=== PATIENT | female | born 1990 | race Caucasian/White ===

== ENCOUNTER 2019-05-22 11:07 | Observation (INO) | payer BC ==
--- NOTE | 2019-05-22 10:57 | US ---
EXAMINATION TYPE: US abdomen complete DATE OF EXAM: 05/22/2019 COMPARISON: NONE CLINICAL HISTORY: R10.84 GENERALIZED ABD PAIN. s/p cholecystectomy 1 week ago, now complains of nause a/vomiting/RUQ pain EXAM MEASUREMENTS: Liver Length: 14.3 cm Gallbladder Wall: Surgically absent cm CBD: 0.7 cm Spleen: 11.1 cm Right Kidney: 11.7 x 4.8 x 5.0 cm Left Kidney: 11.0 x 5.3 x 5.3 cm Pancreas: Obscured by bowel gas Liver: 3.9 x 3.8 x 3.2 cm mixed echogenicity fluid collection seen within the gallbladder fossa. Dif ferential is for abscess versus biloma although given complexity findings are concerning for abscess. Gallbladder: Surgically absent Evidence for sonographic Li's sign: No CBD: wnl Spleen: wnl Right Kidney: No hydronephrosis or masses seen Left Kidney: No hydronephrosis or masses seen Upper IVC: wnl Abd Aorta: proximal portion not seen d/t large amounts of bowel gas Small amount of free fluid near GB fossa IMPRESSION: 1. Within the gallbladder fossa there is a 3.9 cm fluid collection with features concerning for absce ss versus less likely postoperative biloma. Finding was relayed directly to the ordering physician's office by the customer experience specialist at the end of examination after review with the radiologist. 2. Small amount of free fluid near the gallbladder fossa. 3. Obscuration of the pancreas and proximal abdominal aorta due to overlying bowel gas.
[2019-05-22] MEDS ORDERED: SODIUM CHLORIDE 0.9% 1,000 ML IV STA (11:17)
[2019-05-22] MEDS ORDERED: PIPERACILLIN-TAZOBACTAM 3.375 GM in SODIUM CHLORIDE 0.9% 100 ML IVPB STA (11:28)
--- NOTE | 2019-05-22 11:33 | ED ---
Recheck HPI - General Source: patient, RN notes reviewed Mode of arrival: ambulatory Limitations: no limitations <Otis Melgar - Last Filed: 05/22/19 11:40> <Karlo Mckeon - Last Filed: 05/22/19 11:59> - General Chief Complaint: Recheck/Abnormal Lab/Rx Stated Complaint: abscess Time Seen by Provider: 05/22/19 11:14 - History of Present Illness Initial Comments: 29-year-old female presents emergency Department from outpatient ultrasound for abnormal ultrasound. Patient states that she's been having worsening symptoms after cholecystectomy last Saturday. Patient states this was performed by Dr. Kingston in which she states that she had gallbladder disease with gallstones. Patient states that she cannot eat or drink anything because she gets sick. Patient's ultrasound shows fluid collection concerning for abscess or biloma. Patient reports subjective fevers chills or night sweats. Patient denies any INGESTION or other complaints. (Otis Melgar) - Related Data Allergies Allergy/AdvReac Type Severity Reaction Status Date / Time No Known Allergies Allergy Verified 05/22/19 11:12 Review of Systems ROS Other: All systems not noted in ROS Statement are negative. <Otis Melgar - Last Filed: 05/22/19 11:40> ROS Other: All systems not noted in ROS Statement are negative. <Karlo Mckeon - Last Filed: 05/22/19 11:59> ROS Statement: Those systems with pertinent positive or pertinent negative responses have been documented in the HPI. Past Medical History Past Medical History: No Reported History History of Any Multi-Drug Resistant Organisms: None Reported Past Surgical History: Cholecystectomy Past Psychological History: No Psychological Hx Reported Smoking Status: Never smoker Past Alcohol Use History: Occasional Past Drug Use History: None Reported <Otis Melgar - Last Filed: 05/22/19 11:40> General Exam Limitations: no limitations General appearance: alert, in no apparent distress Head exam: Present: atraumatic, normocephalic, normal inspection Eye exam: Present: normal appearance, PERRL, EOMI. Absent: scleral icterus, conjunctival injection, periorbital swelling ENT exam: Present: normal exam, normal oropharynx, mucous membranes moist Neck exam: Present: normal inspection, full ROM. Absent: tenderness, meningismus, lymphadenopathy Respiratory exam: Present: normal lung sounds bilaterally. Absent: respiratory distress, wheezes, rales, rhonchi, stridor Cardiovascular Exam: Present: regular rate, normal rhythm, normal heart sounds. Absent: systolic murmur, diastolic murmur, rubs, gallop, clicks GI/Abdominal exam: Present: soft, tenderness, normal bowel sounds, other (Ecchymosis over her surgical sites, healing well). Absent: distended, guarding, rebound, rigid Back exam: Absent: CVA tenderness (R), CVA tenderness (L) Neurological exam: Present: alert, oriented X3, CN II-XII intact Skin exam: Present: warm, dry, intact, normal color. Absent: rash <Otis Melgar - Last Filed: 05/22/19 11:40> Course Vital Signs 05/22/19 11:09 Temperature 98.3 F Pulse Rate 84 Respiratory 20 Rate Blood Pressure 98/67 O2 Sat by Pulse 99 Oximetry Medical Decision Making <Otis Melgar - Last Filed: 05/22/19 11:40> - Lab Data Result diagrams: 05/22/19 11:40 <Karlo Mckeon - Last Filed: 05/22/19 11:59> - Medical Decision Making Case discussed with Dr. Kingston who recommended have a HIDA scan without CCK patient will be admitted to observation patient was given a dose of antibiotics, given 1 L of fluids. Patient's blood pressure will be monitored, but is only moderate. There is a possibility of biliary leak versus infection. (Otis Melgar) Case discussed with Dr. Kingston, recommends HIDA scan, this will be ordered in the emergency department. Patient is initiated on antibiotics. I also discussed case with the interventional radiologist Dr. Nelson, recommends computed tomography scan, this will also be ordered and both studies are pending. (Karlo Mckeon) - Lab Data Lab Results 05/22/19 Range/Units 11:40 WBC 6.9 (3.8-10.6) k/uL RBC 4.67 (3.80-5.40) m/uL Hgb 14.3 (11.4-16.0) gm/dL Hct 42.2 (34.0-46.0) % MCV 90.4 (80.0-100.0) fL MCH 30.6 (25.0-35.0) pg MCHC 33.9 (31.0-37.0) g/dL RDW 12.5 (11.5-15.5) % Plt Count 282 (150-450) k/uL Neutrophils % 71 % Lymphocytes % 24 % Monocytes % 3 % Eosinophils % 2 % Basophils % 0 % Neutrophils # 4.9 (1.3-7.7) k/uL Lymphocytes # 1.6 (1.0-4.8) k/uL Monocytes # 0.2 (0-1.0) k/uL Eosinophils # 0.2 (0-0.7) k/uL Basophils # 0.0 (0-0.2) k/uL Disposition <Otis Melgar - Last Filed: 05/22/19 11:40> <Karlo Mckeon - Last Filed: 05/22/19 11:59> Clinical Impression: Status post cholecystectomy Narrative: Biliary leak versus abscess (Otis Melgar) Disposition: ADMITTED IP TO THIS HOSP Condition: Fair
[2019-05-22] MEDS ORDERED: ONDANSETRON 4 MG/2 ML VIAL IVP PRN (11:42)
[2019-05-22] MEDS ORDERED: HYDROmorphone 0.5 MG/0.5 ML SYRINGE IVP PRN (11:42)
[2019-05-22] MEDS ORDERED: NALOXONE 0.4 MG/ML 1 ML VIAL IV PRN (11:42)
[2019-05-22 11:56] LABS: Basophils % (A) 0 %; Eosinophils # (A) 0.2 k/uL (0-0.7); Eosinophils % (A) 2 %; HCT 42.2 % (34.0-46.0); HGB 14.3 gm/dL (11.4-16.0); Lymphocytes # (A) 1.6 k/uL (1.0-4.8); Lymphocytes % (A) 24 %; MCH 30.6 pg (25.0-35.0); MCHC 33.9 g/dL (31.0-37.0); MCV 90.4 fL (80.0-100.0); Mean Platelet Volume 7.5; Monocytes # (A) 0.2 k/uL (0-1.0); Monocytes % (A) 3 %; Neutrophils # (A) 4.9 k/uL (1.3-7.7); Neutrophils % (A) 71 %; Platelet Count 282 k/uL (150-450); RBC 4.67 m/uL (3.80-5.40); RDW 12.5 % (11.5-15.5); WBC 6.9 k/uL (3.8-10.6)
[2019-05-22 11:57] LABS: Appearance,Urine Clear (Clear); Bilirubin,Urine 1+ (Negative); Blood,Urine Negative (Negative); Calcium Oxalate Crystals,Urine Few /hpf; Color,Urine Yellow; Glucose,Urine (UA) Negative (Negative); Hyaline Casts,Urine 1 /lpf (0-2); Ketones,Urine 3+ (Negative); Leukocyte Esterase,Urine Negative (Negative); Mucus,Urine Many /hpf; Nitrite,Urine Negative (Negative); Protein,Urine 1+ (Negative); RBC,Urine 2 /hpf (0-5); Specific Gravity,Urine 1.032 (1.001-1.035); Squamous Epithelial Cell,Urine 2 /hpf (0-4); WBC,Urine 2 /hpf (0-5)
[2019-05-22 12:13] LABS: ALT 682 U/L (4-34); African American GFR (CKD) >90 (>60 ml/min/1.73 sqM); Albumin 4.4 g/dL (3.5-5.0); Anion Gap 14 mmol/L; Blood Urea Nitrogen 11 mg/dL (7-17); Calcium 9.6 mg/dL (8.4-10.2); Carbon Dioxide 22 mmol/L (22-30); Chloride 104 mmol/L (98-107); Glucose 85 mg/dL (74-99); Non-African American GFR(CKD) >90 (>60 ml/min/1.73 sqM); Sodium 140 mmol/L (137-145); Total Protein 7.5 g/dL (6.3-8.2)
[2019-05-22 12:15] LABS: Partial Thromboplastin Time 22.3 sec (22.0-30.0); Prothrombin Time 10.8 sec (9.0-12.0)
[2019-05-22 12:25] LABS: AST 225 U/L (14-36); Alkaline Phosphatase 478 U/L (38-126); Potassium 4.6 mmol/L (3.5-5.1)
--- NOTE | 2019-05-22 12:48 | P.GSHP ---
History of Present Illness H&P Date: 05/22/19 29-year-old female is admitted 8 days after having a laparoscopic cholecystectomy. Yesterday, the patient did call the office and complained of pain with meals. She states that she was having epigastric and right upper quadrant pain after any meal since the procedure. She denies any abdominal pain when she is not eating. She denies any nausea or vomiting. Secondary to having this pain, the patient was sent for an outpatient ultrasound. Ultrasound of the abdomen did reveal a 3.9 x 3.8 cm fluid collection in the gallbladder fossa. Secondary to this, the patient was sent to the emergency department for further workup. Currently, the patient is receiving a HIDA scan and I did evaluate her during her HIDA scan. She denies any current abdominal pain. She denies any fevers, chills, chest pain or shortness of breath. CBC was reviewed with no abnormalities. CMP was reviewed with notable transaminitis and elevated alkaline phosphatase. Total bilirubin is normal. - Review of Systems All systems: negative Past Medical History Past Medical History: No Reported History History of Any Multi-Drug Resistant Organisms: None Reported Past Surgical History: Cholecystectomy Past Psychological History: No Psychological Hx Reported Smoking Status: Never smoker Past Alcohol Use History: Occasional Past Drug Use History: None Reported Medications and Allergies Allergies Allergy/AdvReac Type Severity Reaction Status Date / Time No Known Allergies Allergy Verified 05/22/19 11:12 Surgical - Exam Osteopathic Statement: *. No significant issues noted on an osteopathic s tructural exam other than those noted in the History and Physical/Consult. Vital Signs Temp Pulse Resp BP Pulse Ox 98.3 F 84 20 98/67 99 05/22/19 11:09 05/22/19 11:09 05/22/19 11:09 05/22/19 11:09 05/22/19 11:09 - General well nourished, no distress - Eyes PERRL - ENT normal mucosa, no hearing loss - Neck trachea midline - Respiratory normal respiratory effort - Abdomen Soft, nontender, nondistended, no rebound, no guarding, incision sites are clean, dry and intact - Psychiatric oriented to time, oriented to person, oriented to place Results - Labs 05/22/19 11:40 05/22/19 11:40 Abnormal Lab Results - Last 24 Hours (Table) 05/22/19 05/22/19 Range/Units 11:40 11:40 Creatinine 0.48 L (0.52-1.04) mg/dL AST 225 H (14-36) U/L ALT 682 H (4-34) U/L Alkaline Phosphatase 478 H (38-126) U/L Urine Protein 1+ H (Negative) Urine Ketones 3+ H (Negative) Urine Bilirubin 1+ H (Negative) Calcium Oxalate Crystal Few H (None) /hpf Urine Mucus Many H (None) /hpf Diabetes panel 05/22/19 Range/Units 11:40 Sodium 140 (137-145) mmol/L Potassium 4.6 (3.5-5.1) mmol/L Chloride 104 (98-107) mmol/L Carbon Dioxide 22 (22-30) mmol/L BUN 11 (7-17) mg/dL Creatinine 0.48 L (0.52-1.04) mg/dL Glucose 85 (74-99) mg/dL Calcium 9.6 (8.4-10.2) mg/dL AST 225 H (14-36) U/L ALT 682 H (4-34) U/L Alkaline Phosphatase 478 H (38-126) U/L Total Protein 7.5 (6.3-8.2) g/dL Albumin 4.4 (3.5-5.0) g/dL Calcium panel 05/22/19 Range/Units 11:40 Calcium 9.6 (8.4-10.2) mg/dL Albumin 4.4 (3.5-5.0) g/dL Pituitary panel 05/22/19 Range/Units 11:40 Sodium 140 (137-145) mmol/L Potassium 4.6 (3.5-5.1) mmol/L Chloride 104 (98-107) mmol/L Carbon Dioxide 22 (22-30) mmol/L BUN 11 (7-17) mg/dL Creatinine 0.48 L (0.52-1.04) mg/dL Glucose 85 (74-99) mg/dL Calcium 9.6 (8.4-10.2) mg/dL Adrenal panel 05/22/19 Range/Units 11:40 Sodium 140 (137-145) mmol/L Potassium 4.6 (3.5-5.1) mmol/L Chloride 104 (98-107) mmol/L Carbon Dioxide 22 (22-30) mmol/L BUN 11 (7-17) mg/dL Creatinine 0.48 L (0.52-1.04) mg/dL Glucose 85 (74-99) mg/dL Calcium 9.6 (8.4-10.2) mg/dL Total Bilirubin 1.0 (0.2-1.3) mg/dL AST 225 H (14-36) U/L ALT 682 H (4-34) U/L Alkaline Phosphatase 478 H (38-126) U/L Total Protein 7.5 (6.3-8.2) g/dL Albumin 4.4 (3.5-5.0) g/dL Assessment and Plan Plan: 29-year-old female status post laparoscopic cholecystectomy 8 days ago, with abdominal pain and fluid collection on ultrasound - Patient is currently obtaining a HIDA scan to evaluate for any biliary leak status post cholecystectomy - Laboratory values were evaluated. There is no leukocytosis at this time. Transaminitis and elevated alkaline phosphatase are noted. - Further recommendations based on HIDA scan results. We will begin antibiotics.
--- NOTE | 2019-05-22 13:29 | NM ---
EXAMINATION TYPE: NM hepatobiliary wo EF DATE OF EXAM: 05/22/2019 COMPARISON: Abdominal ultrasound of the same date. HISTORY: Abdominal pain status post cholecystectomy. TECHNIQUE: After the intravenous administration of 4.85 mCi Tc 99m Mebrofenin hepatobiliary scintigra phy is performed. Immediate images post injection. FINDINGS: There is appropriate radiotracer uptake and washout of the liver throughout the examination . Excretion is seen to the biliary tree by 12 minutes with excretion into the small bowel by 14 minut es. Persistent uptake is seen just to the left of the common hepatic duct throughout the exam and jeanie tabular morphology. IMPRESSION: Persistent focal uptake is seen just to the left of the common hepatic duct and therefore the fluid collection seen on the recent ultrasound is favored to represent a biloma.
--- NOTE | 2019-05-22 13:58 | CT ---
EXAMINATION TYPE: CT abdomen pelvis w con DATE OF EXAM: 05/22/2019 COMPARISON: Ultrasound 05/22/2019, nuclear medicine scan 05/22/2019 INDICATION: epigastric pain DLP: 1449 mGycm, Automated exposure control for dose reduction was used. CONTRAST: 100 mL of Isovue 300. Study performed without Oral Contrast TECHNIQUE: Axial images were obtained from above the diaphragm to the pubic rami in the axial plane a t 5 mm thick sections. Reconstructed images are reviewed on the computer in the coronal plane. FINDINGS: Limited CT sections are obtained the lung bases. The lung bases are clear. Small hiatal hernia is p resent CT ABDOMEN: Free air is present within the abdomen. This can be compatible the patient's recent bharati cystectomy. Liver: There is a simple appearing cyst measuring 6 Hounsfield units and 3.5 cm in diameter at the in ferior right tip of the liver. This would not correspond with the findings on ultrasound exam. Spleen: Normal Pancreas: Normal Adrenal glands: The adrenal glands are normal. Gallbladder: There is been a recent cholecystectomy. No suspicious abnormal collections are evident. No biloma is identified. Suspicious changes to suggest an abscess are not evident. There are fluid-fi lled loops of duodenum adjacent potentially could account for the findings on the ultrasound. Kidneys: No masses are evident. No hydronephrosis is present. No cysts are present. Delayed images were obtained through the kidneys, which remain unremarkable. Aorta: Normal Inferior vena cava: Normal. CT PELVIS: There are some inflammatory changes along the right periumbilical region may be late to th e patient's recent laparoscopic cholecystectomy. Free air is within the pelvis which may be related t o the patient's prior surgery. Loops of bowel within the abdomen and pelvis are normal. Study is without oral contrast limiting bowel evaluation. Appendix: Normal as visualized. Urinary bladder: Normal. Genitourinary structures: Uterus appears normal. Adnexal regions appear within normal limits Osseous structures: No suspicious lytic or sclerotic lesions. IMPRESSIONS: 1. No suspicious collection to suggest abscess formation. 2. Free air within the abdomen and pelvis felt to most likely be related to the patient's recent surg kady. Monitoring can be performed for resolution. #3 simple appearing cyst within the inferior tip rig ht lobe liver
[2019-05-22] MEDS: SODIUM CHLORIDE 0.9% 1,000 ML IV SCH (14:14)
--- NOTE | 2019-05-22 15:37 | P.PN ---
Progress Note - Text Progress Note Date: 05/22/19 Imaging was completed with US of the abdomen, HIDA scan and CT of the Abdomen and pelvis. Case was discussed with both Dr. Copeland and Dr. Hercules of radiology. The originally presumed abscess does not appear on CT, and there does not appear to be any fluid collection on CT. HIDA scan also does not show evidence of bile leak. Therefore, there does not appear to be evidence of any infection/abscess or biloma. CT did incidentally find pneumoperitoneum. The patient is not showing any signs of peritonitis and on repeat exam is not complaining of any abdominal tenderness or pain. She denies nausea or vomiting. She has no evidence of leukocytosis or left shift or lactic acidosis. Pneumoperitoneum is most likely residual from surgery with slow absorption, but the patient will be observed over night for any clinical changes.
[2019-05-22] MEDS: PIPERACILLIN-TAZOBACTAM 3.375 GM in SODIUM CHLORIDE 0.9% 100 ML IVPB SCH (16:53)
[2019-05-22] MEDS ORDERED: KETOROLAC 30 MG/ML 1 ML VIAL IVP PRN (22:23)
[2019-05-23] MEDS: PIPERACILLIN-TAZOBACTAM 3.375 GM in SODIUM CHLORIDE 0.9% 100 ML IVPB SCH ×2 (00:15→08:07)
[2019-05-23] MEDS: SODIUM CHLORIDE 0.9% 1,000 ML IV SCH ×2 (00:17→15:54)
[2019-05-23 03:50] VITALS: RESP 16
[2019-05-23 07:14] LABS: Basophils % (A) 0 %; Eosinophils # (A) 0.1 k/uL (0-0.7); Eosinophils % (A) 2 %; HCT 41.4 % (34.0-46.0); HGB 13.2 gm/dL (11.4-16.0); Lymphocytes # (A) 1.4 k/uL (1.0-4.8); Lymphocytes % (A) 23 %; MCH 29.6 pg (25.0-35.0); MCHC 31.8 g/dL (31.0-37.0); Mean Platelet Volume 7.1; Monocytes # (A) 0.2 k/uL (0-1.0); Monocytes % (A) 3 %; Neutrophils # (A) 4.2 k/uL (1.3-7.7); Neutrophils % (A) 70 %; Platelet Count 237 k/uL (150-450); RBC 4.46 m/uL (3.80-5.40); RDW 12.6 % (11.5-15.5)
[2019-05-23 07:31] LABS: ALT 472 U/L (4-34); AST 110 U/L (14-36); African American GFR (CKD) >90 (>60 ml/min/1.73 sqM); Albumin 3.7 g/dL (3.5-5.0); Alkaline Phosphatase 421 U/L (38-126); Anion Gap 10 mmol/L; Blood Urea Nitrogen 8 mg/dL (7-17); Carbon Dioxide 25 mmol/L (22-30); Chloride 105 mmol/L (98-107); Glucose 82 mg/dL (74-99); Non-African American GFR(CKD) >90 (>60 ml/min/1.73 sqM); Sodium 140 mmol/L (137-145); Total Protein 6.5 g/dL (6.3-8.2)
[2019-05-23 07:53] VITALS: BP 101/66; PULSE 74; TEMP 98
[2019-05-23] MEDS ORDERED: ONDANSETRON 4 MG TAB PO PRN (12:51)
--- NOTE | 2019-05-23 12:59 | P.PN ---
Subjective Progress Note Date: 05/23/19 Principal diagnosis: Abdominal pain status post laparoscopic cholecystectomy The patient is continuing to have some pain. She is tolerating the clear liquids although she did have some dry heaves this morning. She is requesting that she doesn't need anything further surgically, that she be allowed to be discharged home. Objective - Vital Signs Vital signs: Vital Signs Temp 98.0 F 05/23/19 07:00 Pulse 74 05/23/19 07:00 Resp 16 05/23/19 07:00 BP 101/66 05/23/19 07:00 Pulse Ox 97 05/23/19 07:00 Intake & Output 05/22/19 05/23/19 05/23/19 18:59 06:59 18:59 Intake Total 75 450 Balance 75 450 Weight 81.647 kg Intake: Intake, IV Titration 75 450 Amount Sodium Chloride 0.9% 1, 75 450 000 ml @ 75 mls/hr IV . [id number] Rx#:[id number] Other: Voiding Method Toilet # Voids 1 - Constitutional General appearance: Present: cooperative, no acute distress - Gastrointestinal General gastrointestinal: Present: decreased bowel sounds, soft Localized gastrointestinal: surgical scar: diffuse (Some ecchymosis near the incisions. No cellulitis. No crepitus.) - Labs CBC & Chem 7: 05/23/19 06:47 05/23/19 06:47 Labs: Abnormal Lab Results - Last 24 Hours (Table) 05/23/19 Range/Units 06:47 AST 110 H (14-36) U/L ALT 472 H (4-34) U/L Alkaline Phosphatase 421 H (38-126) U/L Assessment and Plan (1) Abdominal pain Current Visit: Yes Status: Acute Code(s): R10.9 - UNSPECIFIED ABDOMINAL PAIN SNOMED Code(s): 75278401 (2) Elevated liver function tests Current Visit: Yes Status: Acute Code(s): R94.5 - ABNORMAL RESULTS OF LIVER FUNCTION STUDIES SNOMED Code(s): 395027764 Plan: The patient does have modest elevation of the liver function tests which are lower today than yesterday. She may have passed a small gallstone. There is some residual pneumoperitoneum and air in the abdominal wall. No sign of any infectious process at this point. The patient is anxious to go home. We'll give her a low-fat diet along with oral antibiotic. If she is able to tolerate that without vomiting we'll let her be discharged home. She doesn't tolerate that we'll continue to hydrate her and repeat liver function tests in the morning.
== END 2019-05-23 15:52 | disposition home or self-care (01) ==
LOC: EC 11:07 → 4SSUR 11:41
PROVIDERS: ADMIT Surgery; ATTEND Surgery
DX: R10.13 Epigastric pain (principal); R10.11 Right upper quadrant pain; Z90.49 Acquired absence of other specified parts of digestive tract; R79.89 Other specified abnormal findings of blood chemistry
CPT/HCPCS: 96361 ×3; 96365; 96366 ×2; 96375 ×2; 99284; 36415; 80053 ×2; 83605; 83690; 85025 ×2; 85610; 85730; 81001; 87040; 76700; 74177; 78226; G0378 ×2; A9537; J2543 ×2; J2405; J1885; J1170; Q9967

== ENCOUNTER 2021-08-16 08:03 | Day surgery (SDC) | payer BC ==
[2021-08-14 14:35] VITALS: BMI 30.4
[~2021-08-16 08:03] MED LIST: LIDOCAINE 1% (10MG/ML) FOR IV START INTRADERMA PRN
[2021-08-16 08:44] VITALS: TEMP 97
[2021-08-16] MEDS: LACTATED RINGERS 1,000 ML IV SCH ×2 (08:59→09:25)
[2021-08-16] MEDS ORDERED: PROPOFOL 10 MG/ML 20 ML VIAL IV ONE (09:26)
[2021-08-16] MEDS ORDERED: LIDOCAINE 1% INJ 10MG/ML (20 ML MDV) ONE (09:26)
--- NOTE | 2021-08-16 09:43 | P.PCN ---
Date of Procedure: 08/16/21 Procedure(s) Performed: BRIEF HISTORY: Patient is a 31-year-old, pleasant, white female scheduled for an upper endoscopy as a part of evaluation of epigastric pain for the last 4 months duration. She also complains heartburn, abdominal bloating and altered bowel movements. Recently was started on Protonix 40 mg twice daily with some relief in her symptoms.. PROCEDURE PERFORMED: Esophagogastroduodenoscopy with biopsy. PREOPERATIVE DIAGNOSIS: Chronic epigastric pain/abdominal bloating/change in bowel habits. IV sedation per anesthesia. PROCEDURE: After informed consent was obtained, the patient was brought into the endoscopy unit. IV sedation was administered by Anesthesia under continuous monitoring. Initially the Olympus GIF-140 video endoscope was inserted into the mouth. Esophagus intubated without any difficulty. It was gradually advanced into the stomach and duodenum and carefully examined. The bulb and the second part of the duodenum appeared normal. Abscesses were done from here to rule out celiac disease. The scope at this time was withdrawn to the stomach, adequately insufflated with air, and upon careful examination, mucosa of the antrum, had mild diffuse gastritis and biopsies were done from this area. The body, cardia and the fundus appeared normal. The scope was then withdrawn into the esophagus. The GE junction was located at 39 cm from the incisors. Hiatal hernia noted. There were linear erosions in the distal esophagus consistent with LA grade B reflux esophagitis. The rest of the esophagus appeared normal. The patient tolerated the procedure well. IMPRESSION: 1. Linear erosions in the distal esophagus consistent with LA grade B reflux esophagitis. 2. Small hiatal hernia. 3. Mild antral gastritis RECOMMENDATIONS: The findings of this examination were discussed with the patient as well as her family. She was advised to follow with the biopsy results. She will continue with Protonix 40 mg twice daily and follow antrum reflux measures. She'll be seen in office in 2-3 weeks..
[2021-08-16 09:48] VITALS: RESP 16
[2021-08-16 10:03] VITALS: BP 93/64; PULSE 71
== END 2021-08-16 10:29 | disposition home or self-care (01) ==
LOC: ORWHC2ENDO 08:03
PROVIDERS: ATTEND Internal Medicine Gastroenterology
DX: K21.9 Gastro-esophageal reflux disease without esophagitis (principal); K44.9 Diaphragmatic hernia without obstruction or gangrene; K29.60 Other gastritis without bleeding; K21.00 Gastro-esophageal reflux disease with esophagitis, without bleeding
CPT/HCPCS: 43239; 81025; 88305; J2001; J2704

== ENCOUNTER 2023-07-01 07:13 | Inpatient (IN) | payer BC ==
[2023-07-01] MEDS: LACTATED RINGERS 1,000 ML IV SCH (07:20)
[2023-07-01] MEDS ORDERED: CARBOPROST TROMETHAMINE 250 MCG/ML 1 ML AMP IM PRN (07:34)
[2023-07-01] MEDS ORDERED: TRANEXAMIC 1,000 MG/100ML-NACL 1,000 MG in EMPTY BAG 1 BAG IV PRN (07:34)
[2023-07-01] MEDS ORDERED: OXYTOCIN 10 UNIT/ML 1 ML VIAL IM PRN (07:34)
[2023-07-01] MEDS ORDERED: TERBUTALINE 1 MG/ML VIAL SQ PRN (07:34)
[2023-07-01] MEDS ORDERED: miSOPROStoL 200 MCG TAB PO PRN (07:34)
[2023-07-01] MEDS ORDERED: LIDOCAINE 0.5% (PF) 5 MG/ML (50 ML SDV) SQ PRN (07:34)
[2023-07-01] MEDS ORDERED: METHYLERGONOVINE 0.2 MG/ML 1 ML AMP IM PRN (07:34)
[2023-07-01] MEDS: OXYTOCIN 30 UNITS/500 ML NS 30 UNIT in SALINE 1 500ML.BAG IV SCH (07:35)
[2023-07-01] MEDS ORDERED: ACETAMINOPHEN TAB 325 MG TAB PO PRN (07:45)
[2023-07-01] MEDS ORDERED: diphenhydrAMINE 25 MG CAP PO PRN (07:45)
[2023-07-01] MEDS ORDERED: OXYTOCIN 30 UNITS/500 ML NS 30 UNIT in SALINE 1 500ML.BAG IV SCH (07:45)
[2023-07-01] MEDS ORDERED: SIMETHICONE 80 MG CHEWABLE PO PRN (07:45)
[2023-07-01] MEDS ORDERED: HYDROCORTISONE 2.5% RECTAL CREAM 30 GM TUBE RECTAL PRN (07:45)
[2023-07-01] MEDS ORDERED: LANOLIN CREAM 1 GM TUBE TOPICAL PRN (07:45)
[2023-07-01] MEDS ORDERED: diphenhydrAMINE 50 MG/ML 1 ML VIAL IVP PRN ×2 (07:45)
[2023-07-01] MEDS ORDERED: diphenhydrAMINE 50 MG CAP PO PRN (07:45)
[2023-07-01] MEDS ORDERED: ZOLPIDEM 5 MG TAB PO PRN (07:45)
[2023-07-01] MEDS ORDERED: BENZOCAINE/MENTHOL SPRAY 1 GM/SPRAY AEROSOL TOPICAL PRN (07:45)
[2023-07-01] MEDS: IBUPROFEN 600 MG TAB PO PRN (08:39)
--- NOTE | 2023-07-01 08:40 | P.PROBDLV ---
Vaginal Delivery Note - . Vaginal Delivery Note: DATE OF DELIVERY: [] This is a 33-year-old [] female, 3, para 2001, at 37 1/7 weeks' gestation. Patient presented with spontaneous amniorrhexis which occurred at 5 am this am , Please see admitting H&P for details. is remarkable for group B strep culture is negative . Patient was admitted and noted to be anterior lip. She progressed well through the first stage of labor. heart tones were reassuring throughout labor. Patient became completely dilated at [] hours and began the second stage of labor at that time. She pushed the quite successfully in the OA position. The anterior shoulder was then easily delivered from underneath the pubic symphysis, at which time the oropharynx, nasopharynx and external nares were bulb suctioned on the perineal body. The patient was officially delivered of a liveborn female at . Umbilical cord was doubly clamped and ligated after about 2 minutes. The placenta delivered spontaneously. It was inspected and noted to be intact with trivascular cord. At this time, the perineal body was redraped. Inspection of the cervix, vagina, perineum, periurethral and perirectal areas revealed no laceration. All sponge, needle, and instrument counts are correct at the end of this procedure. The patient was allowed to begin the bonding experience in the LDR.
[2023-07-01 08:41] LABS: Basophils % (A) 0 %; Eosinophils % (A) 0 %; HCT 36.4 % (34.0-46.0); HGB 12.5 gm/dL (11.4-16.0); Lymphocytes # (A) 0.8 k/uL (1.0-4.8); Lymphocytes % (A) 5 %; MCH 31.6 pg (25.0-35.0); MCHC 34.3 g/dL (31.0-37.0); MCV 92.2 fL (80.0-100.0); Mean Platelet Volume 8.3; Monocytes # (A) 0.2 k/uL (0-1.0); Monocytes % (A) 2 %; Neutrophils # (A) 13.4 k/uL (1.3-7.7); Neutrophils % (A) 92 %; Platelet Count 158 k/uL (150-450); RBC 3.95 m/uL (3.80-5.40); RDW 14.1 % (11.5-15.5); WBC 14.5 k/uL (3.8-10.6)
[2023-07-01] MEDS: SENNOSIDES-DOCUSATE SODIUM 1 EACH TAB PO SCH (08:42)
--- NOTE | 2023-07-01 11:56 | P.HPOB ---
History of Present Illness H&P Date: 07/01/23 Chief Complaint: IUP @ 37 1/7 weeks, labor This is a 33 yo at 37 1/7 weeks, EDC of 07/20 that presents in active labor. She states had rupture of membranes at 5 am, but waited for her and got to the hospital just prior to delivery. She had received spott care with a lapse from 17 weeks to 30 weeks. she was GDM with her prior pregnancies and states she was checking her BS. She never brought her sheet but states she had good BS. GBS was done at her last visit and was negative. blood type of A pos, rubella immune, HBSaG neg, HCV neg, HIV neg, RPR neg. OB history 1 2 with precipitous delivery 3 current Review of Systems Constitutional: Denies chills, Denies fatigue, Denies fever Ears, nose, mouth and throat: Denies headache Cardiovascular: Reports leg edema Respiratory: Denies dyspnea Gastrointestinal: Denies nausea, Denies vomiting Genitourinary: Reports Past Medical History Past Medical History: No Reported History Additional Past Medical History / Comment(s): "DIGESTIVE ISSUES" History of Any Multi-Drug Resistant Organisms: None Reported Past Surgical History: Cholecystectomy Past Anesthesia/Blood Transfusion Reactions: No Reported Reaction Smoking Status: Never smoker - Past Family History Father History Unknown: Yes Medications and Allergies Home Medications Medication Instructions Recorded Confirmed Type Vit No.179/Iron/Folic 1 each PO DAILY 06/27/23 07/01/23 History [ Tablet] Allergies Allergy/AdvReac Type Severity Reaction Status Date / Time No Known Allergies Allergy Verified 07/01/23 07:21 Exam Osteopathic Statement: *. No significant issues noted on an osteopathic structural exam other than those noted in the History and Physical/Consult. Vital Signs Temp Pulse Resp BP 07/01/23 08:18 65 17 102/61 07/01/23 08:03 77 17 101/65 07/01/23 07:48 97.9 F 78 17 94/56 Intake and Output 06/30/23 07/01/23 07/01/23 22:59 06:59 14:59 Output Total 100 Balance -100 Output: Estimated Blood Loss 100 Other: Weight 86.183 kg targeted physical exam is done on this date, in general this is a well nourished well developed female in active labor, completely dilated, pushing with precipitous delivery of viable female . Results Result Diagrams: 07/01/23 08:27 Assessment and Plan (1) 37 weeks gestation of Current Visit: Yes Status: Acute Code(s): Z3A.37 - 37 WEEKS GESTATION OF SNOMED Code(s): 62933851 (2) Active labor Current Visit: Yes Status: Acute Code(s): [id number] - SNOMED Code(s): 827138431 Plan: 33 yo at 37 1/7 weeks that presents in active labor, delivering upon my arrival.
[2023-07-02 06:18] LABS: Basophils % (A) 0 %; Eosinophils # (A) 0.1 k/uL (0-0.7); Eosinophils % (A) 1 %; HGB 12.1 gm/dL (11.4-16.0); Lymphocytes # (A) 1.7 k/uL (1.0-4.8); Lymphocytes % (A) 17 %; MCH 31.1 pg (25.0-35.0); MCHC 32.8 g/dL (31.0-37.0); MCV 94.9 fL (80.0-100.0); Monocytes # (A) 0.3 k/uL (0-1.0); Monocytes % (A) 3 %; Neutrophils # (A) 7.9 k/uL (1.3-7.7); Neutrophils % (A) 78 %; Platelet Count 148 k/uL (150-450); RDW 13.8 % (11.5-15.5); WBC 10.1 k/uL (3.8-10.6)
[2023-07-02 08:38] VITALS: BP 109/59; PULSE 72; RESP 18; TEMP 98.1
--- NOTE | 2023-07-02 09:58 | P.DS ---
Providers Date of admission: 07/01/23 07:19 Expected date of discharge: 07/02/23 Attending physician: Shahana Powell Primary care physician: Stated None - Discharge Diagnosis(es) (1) 37 weeks gestation of Current Visit: Yes Status: Acute (2) Active labor Current Visit: Yes Status: Acute (3) Status post normal vaginal delivery Current Visit: Yes Status: Acute Hospital Course: This is a 33yo G3 now P3 that presented to labor and delivery in active labor yesterday am. Patient had been receiving care with myself, she did have a lapse in care from 17 weeks to 30. Patient had a prior history of ge stational diabetes diet-controlled with prior pregnancies and states she was checking her blood sugars. Patient did not bring in blood sugars to report in the office but stated they were normal. She had noted rupture of membranes at 5 AM yesterday, she presented just after 7 noted to be anterior lip. Patient was placed in the labor room, precipitously delivered a viable female infant. Weight of 6 pounds 8.4 ounces, at 729, Apgars of 9 and 9 at 1 and 5 minutes respectively. Patient's course has been uneventful. In this day #1 she is ambulating and voiding without difficulty. She is tolerating a regular diet without nausea or vomiting. She states her pain is well-controlled. She denies concerns. She would like discharge home today. Patient Condition at Discharge: Good Plan - Discharge Summary New Discharge Prescriptions: No Action Vit No.179/Iron/Folic [ Tablet] 1 each PO DAILY Discharge Medication List Vit No.179/Iron/Folic [ Tablet] 1 each PO DAILY 06/27/23 [History] Follow up Appointment(s)/Referral(s): Shahana Powell DO [Doctor of Osteopathic Medicine] - 1 Week Patient Instructions/Handouts: Vaginal Delivery (DC), Vaginal Delivery (GEN) Activity/Diet/Wound Care/Special Instructions: No intercourse, tampons or douching. No heavy lifting greater than a gallon of milk. No driving for two weeks. Call with any fever, shakes or chills, with any pain not alleviated by over the counter meds, or with any quesions or concerns. Discharge Disposition: HOME SELF-CARE
[2023-07-02] MEDS: BACITRACIN OINT 1 EACH PACKET TOPICAL ONE (10:30)
== END 2023-07-02 11:00 | disposition home or self-care (01) | DRG 807 ==
LOC: FBPOP 07:13 → 4FBP 07:19
PROVIDERS: ADMIT Obstetrics & Gynecology Obstetrics; ATTEND Obstetrics & Gynecology Obstetrics
PROC: 10E0XZZ Delivery of Products of Conception, External Approach (ICD-10-PCS; principal; 2023-07-01)
DX: O62.3 Precipitate labor (principal); Z37.0 Single live birth; Z3A.37 37 weeks gestation of pregnancy; Z86.32 Personal history of gestational diabetes
CPT/HCPCS: 85025; 86850; 86900; 86901; 87070; 99213